=== PATIENT | female | born 1970 | race Caucasian/White ===

== ENCOUNTER 2020-04-20 10:13 | Emergency (ER) | payer SELFPAY ==
[~2020-04-20] VITALS: Ht 154.9 cm; Wt 55.2 kg
[2020-04-20] MEDS ORDERED: CEPH500T PO (10:23)
[2020-04-20] MEDS ORDERED: DICL75TA2 PO (10:23)
--- NOTE | 2020-04-20 10:24 | ED EENT ---
History of Present Illness General Chief Complaint: Dental Problems/Pain Stated Complaint: DENTAL PAIN Source: patient, RN/MD, old records History of Present Illness Date Seen by Provider: Apr 20, 2020 Time Seen by Provider: 10:15 Initial Comments This patient is a 49-year-old female presents to the emergency department complaining of dental pain. Patient states she believes she is developing a dental abscess. Patient states she has a bad tooth on the lower left side. Timing/Duration: gradual Location: mouth Prearrival Treatment: over the counter meds Associated Symptoms: tooth pain Allergies and Home Medications Patient Home Medication List Home Medication List Reviewed: Yes Review of Systems Review of Systems Constitutional: No no symptoms reported; see HPI; No chills, No diaphoresis, No dizziness, No fever, No malaise, No weakness, No weight gain, No weight loss, No other Eyes: Denies No Symptoms Reported, Denies See HPI, Denies Blindness, Denies Blurred Vision, Denies Drainage, Denies Decreased Acuity, Denies Foreign Body Sensation, Denies Inflammation, Denies Pain, Denies Photophobia, Denies Previous Injury, Denies Shadows, Denies Tunnel Vision, Denies Vision Changes, Denies Contact Lenses, Denies Glasses, Denies Other Ears: Denies No Symptoms Reported, Denies See HPI, Denies Dizziness, Denies Pain, Denies Tinnitus, Denies Bloody Discharge, Denies Clear Discharge, Denies Purulent Discharge, Denies Serosanguinous Discharge, Denies Previous Injury, Denies Other Nose: denies no symptoms reported, denies see HPI, denies clots, denies congestion, denies epistaxis, denies pain, denies bloody discharge, denies clear discharge, denies purulent discharge, denies serosanguinous discharge, denies previous injury, denies other Mouth: denies no symptoms reported; see HPI; denies clots, denies loose teeth; pain; denies swelling, denies bloody discharge, denies clear discharge, denies purulent discharge, denies serosanguinous discharge, denies previous injury, denies other Throat: denies no symptoms reported, denies see HPI, denies pain, denies swelling, denies discharge, denies neck stiffness, denies hoarse, denies aphonia, denies muffled, denies painful swallowing, denies difficulty with fluids, denies previous injury, denies other Respiratory: No no symptoms reported, No see HPI, No cough, No dyspnea on e xertion, No hemoptysis, No orthopnea, No phlegm, No short of breath, No stridor, No wheezing, No other Cardiovascular: No no symptoms reported, No see HPI, No chest pain, No edema, No Hx of Intervention, No palpitations, No syncope, No vascular heart diseas, No other All Other Systems Reviewed Negative Unless Noted: Yes Visual Acuity : Vision Acuity Degree: 20/10 Physical Exam Height, Weight, BMI Height: '" Weight: lbs. oz. kg; BMI Method: General Appearance: WD/WN, no apparent distress Mouth/Throat: dental tenderness (dental abscess left lower side) Neck: non-tender, full range of motion, supple, normal inspection Cardiovascular: regular rate, rhythm Respiratory: chest non-tender, lungs clear, normal breath sounds Gastrointestinal: normal bowel sounds, non tender, soft Skin: normal color, warm/dry Progress/Results/Core Measures Progress Progress Note : Time: 10:21 Progress Note Patient has known dental problems lower left side. Developing abscess. We'll place patient on Keflex twice a day for the next 7 days. Diclofenac as needed for pain. May use over [id number] Orajel or Anbesol as needed for tooth pain. Follow-up with dentist as soon as possible. Departure Impression Primary Impression: Dental caries Additional Impression: Dental abscess Disposition: 01 HOME, SELF-CARE Condition: Stable Departure-Patient Inst. Decision time for Depature: 10:22 Referrals: NO,LOCAL PHYSICIAN (PCP) Primary Care Physician Patient Instructions: Tooth Abscess (DC) Add. Discharge Instructions: We'll place patient on Keflex twice a day for the next 7 days. Diclofenac as needed for pain. May use over [id number] Orajel or Anbesol as needed for tooth pain. Follow-up with dentist as soon as possible. All discharge instructions reviewed with patient and/or family. Voiced understanding. Scripts Diclofenac Sodium (Diclofenac Sodium) 75 Mg Tablet.dr 75 MG PO BID for 10 Days, #20 TAB 0 Refills Prov: JAIDEN WHITE MD 04/20/20 Cephalexin (Cephalexin) 500 Mg Tablet 500 MG PO BID, #10 TAB 0 Refills Prov: JAIDEN WHITE MD 04/20/20 JAIDEN WHITE MD Apr 20, 2020 10:24
[2020-04-20 10:27] VITALS: BP 109/91
== END 2020-04-20 10:27 | disposition home or self-care (01) ==
LOC: ER FS 10:15
DX: K02.9 Dental caries, unspecified (principal); K04.7 Periapical abscess without sinus
CPT/HCPCS: 99282

== ENCOUNTER 2020-04-24 15:31 | Emergency (ER) | payer SELFPAY ==
[~2020-04-24 15:31] MED LIST: CEPH500T PO; DICL75TA2 PO
[2020-04-24 15:40] VITALS: BP 123/88
--- NOTE | 2020-04-24 15:53 | NUR ---
Spoke with [facility] and they said to call [phone] at 0730 in morning and see if they have any openings for tomorrow afternoon.
--- NOTE | 2020-04-24 16:06 | ED General ---
General Chief Complaint: Dental Problems/Pain Stated Complaint: FACE SWELLING,TOOTH ABSCESS Nursing Triage Note: Patient presents to the ED with c/o of tooth abscess on left lower side. She states she was seen in the ED 5 days ago and prescribed an antibiotic and pain medication. She reports that she has completed the antibiotic and the abscess/pain has not improved. Nursing Sepsis Screen: No Definite Risk Source of Information: Patient History of Present Illness Date Seen by Provider: Apr 24, 2020 Time Seen by Provider: 15:40 Initial Comments Patient is a 49-year-old female who presents for re-evaluation of mandible pain and facial abscess. Patient was evaluated emergency department 5 days ago for pain was prescribed antibiotics and pain medication which is. She said she has gradually increased more swelling tenderness over her left submandibular region. No dysphonia, drooling, trismus, dysphagia. Patient states she has been unable to get into a dentist. No other acute symptoms or complaints. Timing/Duration: 1 Week Severity: Moderate Modifying Factors: improves with Eating Associated Systoms: Denies Symptoms Allergies and Home Medications Allergies Coded Allergies: No Known Drug Allergies (Unverified , 04/20/20) Home Medications Cephalexin 500 Mg Tablet, 500 MG PO BID Prescribed by: JAIDEN WHITE on 04/20/20 1023 Diclofenac Sodium 75 Mg Tablet.dr, 75 MG PO BID Prescribed by: JAIDEN WHITE on 04/20/20 1023 Patient Home Medication List Home Medication List Reviewed: Yes Review of Systems Review of Systems Constitutional: no symptoms reported EENTM: see HPI Respiratory: no symptoms reported Past Pgjqats-Ncgylg-Qfvssc Hx Past Med/Social Hx: Reviewed Nursing Past Med/Soc Hx Patient Social History Alcohol Use: Denies Use Recreational Drug Use: No Type Used: Cigarettes 2nd Hand Smoke Exposure: No Recent Foreign Travel: No Contact w/Someone Who Travel: No Recent Infectious Disease Expo: No Recent Hopitalizations: No Physical Abuse: No Sexual Abuse: No Mistreated: No Fear: No Seasonal Allergies Seasonal Allergies: No Past Medical History Surgeries: Yes (L arm, Back, lumpectomy left breast) Breast, Orthopedic, Tubal Ligation Respiratory: No Cardiac: No Neurological: No Genitourinary: No Gastrointestinal: No Musculoskeletal: No Endocrine: No HEENT: No Cancer: Yes Breast Did You Recieve Any Treatments: Yes What Type of Treatment Did You: Chemotherapy, Surgical Intervention Psychosocial: No Integumentary: No Blood Disorders: No Physical Exam Vital Signs Vital Signs - First Documented 04/24/20 15:40 Temp 36.7 Pulse 78 Resp 18 B/P (MAP) 123/88 (100) Pulse Ox 97 O2 Delivery Room Air Capillary Refill : Less Than 3 Seconds Height, Weight, BMI Height: '" Weight: lbs. oz. kg; 23.00 BMI Method: General Appearance: No Apparent Distress Eyes: Bilateral Eye Normal Inspection, Bilateral Eye PERRL, Bilateral Eye Abnormal EOM HEENT: PERRL/EOMI, Normal ENT Inspection, Pharynx Normal, Other (left submandibular fullness, no fluctuance, erythema or warmth to suggest abscess, poor dentition, left lower premolar dental erosion with her gingival swelling) Neck: Full Range of Motion Respiratory: Chest Non Tender, Lungs Clear Cardiovascular: Regular Rate, Rhythm, No Edema Focused Exam Sepsis Stage: Ruled Out Progress/Results/Core Measures Suspected Sepsis Recent Fever Within 48 Hours: No Infection Criteria Present: Documented Infection New/Unexplained Altered Menta: No Sepsis Screen: No Definite Risk SIRS Temperature: Pulse: 78 Respiratory Rate: 18 Blood Pressure 123 /88 Mean: 100 Results/Orders Vital Signs/I&O 04/24/20 15:40 Temp 36.7 Pulse 78 Resp 18 B/P (MAP) 123/88 (100) Pulse Ox 97 O2 Delivery Room Air Capillary Refill : Less Than 3 Seconds Blood Pressure Mean: 100 Departure Communication (Admissions) Antibiotics and pain medications refilled. Dental clinic contacted and agrees to see patient tomorrow. Patient instructed to fill antibiotics and is visit dentist tomorrow without fail tomorrow. Pseudomonal Risk: No known risk Impression Primary Impression: Dental caries Additional Impression: Dental caries extending into dentine Disposition: HOME, SELF-CARE Condition: Stable/Unchanged Departure-Patient Inst. Referrals: NO,LOCAL PHYSICIAN (PCP/Family) Primary Care Physician Patient Instructions: Tooth Decay, Adult (DC) Add. Discharge Instructions: Please contact our clinic this afternoon scheduled appointment for tomorrow for evaluation of dental abscess tomorrow without fail. Fill antibiotics and pain medication after leaving the emergency department and take as directed. All discharge instructions reviewed with patient and/or family. Voiced understanding. Scripts Hydrocodone/Acetaminophen (Hydrocodone-Acetamin 5-325 mg) 1 Each Tablet 1 EACH PO q6, #10 TAB Prov: MARIANA SEGURA DO 04/24/20 Penicillin V Potassium (Penicillin V Potassium) 500 Mg Tablet 500 MG PO QID, #40 Prov: MARIANA SEGURA DO 04/24/20 MARIANA SEGURA DO Apr 24, 2020 16:06
[2020-04-24] MEDS ORDERED: PENI500T PO (16:07)
[2020-04-24] MEDS ORDERED: HYDR-83 PO (16:07)
--- OUTSIDE RECORDS SUMMARY | 2020-04-24 20:06 | XMS REPORT | Continuity of Care Document ---
Author Organization Unknown Address Unknown Phone Unavailable Allergies Active Description Code Type Severity Reaction Onset Reported/Identified Relationship to Patient Clinical Status Yes No Known Drug Allergies [id number] Drug Allergy Unknown N/A 04/20/2020 Medications There is no data. Problems Date Dx Coded Attending Type Code Diagnosis Diagnosed By 04/23/2020 JAIDEN WHITE MD Ot K02.9 DENTAL CARIES, UNSPECIFIED 04/23/2020 JAIDEN WHITE MD Ot K04.7 PERIAPICAL ABSCESS WITHOUT SINUS 04/23/2020 JAIDEN WHITE MD Ot K08.89 OTHER SPECIFIED DISORDERS OF TEETH AND S Procedures There is no data. Results There is no data. Encounters ACCT No. Visit Date/Time Discharge Status Pt. Type Provider Facility Loc./Unit Complaint [id number] 04/20/2020 10:15:00 020 10:27:00 DIS Outpatient JAIDEN WHITE MD [facility] ER FS DENTAL PAIN
== END 2020-04-24 16:28 | disposition home or self-care (01) ==
LOC: EDUNIT# 15:31 → ER FS 15:33
DX: K02.62 Dental caries on smooth surface penetrating into dentin (principal); Z85.3 Personal history of malignant neoplasm of breast
CPT/HCPCS: 99282

== ENCOUNTER 2021-08-21 15:41 | Emergency (ER) | payer SELFPAY ==
[~2021-08-21] VITALS: Ht 157.5 cm; Wt 54.5 kg
[~2021-08-21 15:41] MED LIST changes: +ACHD5005 PO; +PENI500T PO
--- NOTE | 2021-08-21 15:51 | ED GU-Female ---
General Chief Complaint: - Reproductive Stated Complaint: VAGINAL BLEEDING History of Present Illness Date Seen by Provider: Aug 21, 2021 Time Seen by Provider: 15:50 Initial Comments 51-year-old female presents with 2 days of light vaginal spotting/bleeding. Patient was concerned because she had a normal period about a week and a half ago and then had a little bit of very light spotting yesterday was just a little bit heavier today. Patient reports some on and off lower pelvic pain however this is been going on for months and is not new. Patient in the last 2 months had a normal pelvic exam and Pap smear. Patient denies any recent trauma. Patient does have a tubal ligation history. Allergies and Home Medications Allergies Coded Allergies: No Known Drug Allergies (Unverified , 04/20/20) Patient Home Medication List Home Medication List Reviewed: Yes Cephalexin (Cephalexin) 500 Mg Tablet, 500 MG PO BID Prescribed by: JAIDEN WHITE on 04/20/20 1023 Diclofenac Sodium (Diclofenac Sodium) 75 Mg Tablet.dr, 75 MG PO BID Prescribed by: JAIDEN WHITE on 04/20/20 1023 Hydrocodone/Acetaminophen (Hydrocodone-Acetamin 5-325 mg) 1 Each Tablet, 1 EACH PO q6 Prescribed by: MARIANA SEGURA on 04/24/20 1607 Penicillin V Potassium (Penicillin V Potassium) 500 Mg Tablet, 500 MG PO QID Prescribed by: MARIANA SEGURA on 04/24/20 1607 Review of Systems Review of Systems Constitutional: no symptoms reported EENTM: no symptoms reported Respiratory: no symptoms reported Cardiovascular: no symptoms reported Gastrointestinal: no symptoms reported Genitourinary: see HPI Musculoskeletal: no symptoms reported Skin: no symptoms reported Psychiatric/Neurological: No Symptoms Reported Past Cliolvc-Raxnng-Btcpqj Hx Seasonal Allergies Seasonal Allergies: No Past Medical History Surgeries: Yes (L arm, Back, lumpectomy left breast) Breast, Orthopedic, Tubal Ligation Respiratory: No Cardiac: No Neurological: No Genitourinary: No Gastrointestinal: No Musculoskeletal: No Endocrine: No HEENT: No Cancer: Yes Breast Did You Recieve Any Treatments: Yes What Type of Treatment Did You: Chemotherapy, Surgical Intervention Psychosocial: No Integumentary: No Blood Disorders: No Physical Exam Vital Signs Vital Signs - First Documented 08/21/21 15:55 Temp 37.3 Pulse 79 Resp 16 B/P (MAP) 138/91 (107) Pulse Ox 98 O2 Delivery Room Air Capillary Refill : Height, Weight, BMI Height: '" Weight: lbs. oz. kg; 23.00 BMI Method: General Appearance: WD/WN, no apparent distress Neck: non-tender, full range of motion Cardiovascular: normal peripheral pulses, regular rate, rhythm Respiratory: chest non-tender, lungs clear Gastrointestinal: non tender, soft Pelvic: other (Exam deferred, patient states recent normal pelvic exam, no tenderness in the lower abdomen/pelvic region on palpation) Neurologic/Psychiatric: alert, normal mood/affect, oriented x 3 Skin: normal color, warm/dry Progress/Results/Core Measures Suspected Sepsis SIRS Temperature: Pulse: Respiratory Rate: Blood Pressure / Mean: Results/Orders Vital Signs/I&O 08/21/21 15:55 Temp 37.3 Pulse 79 Resp 16 B/P (MAP) 138/91 (107) Pulse Ox 98 O2 Delivery Room Air Capillary Refill : Departure Impression Primary Impression: Dysfunctional uterine bleeding Disposition: HOME, SELF-CARE Condition: Stable Departure-Patient Inst. Referrals: NO,LOCAL PHYSICIAN (PCP/Family) Primary Care Physician Add. Discharge Instructions: Please follow-up with community health or [facility] for further evaluation. Return to the ER if bleeding requires pad changing within every 2 hours more than 3-4 times. All discharge instructions reviewed with patient and/or family. Voiced understanding. SUDHA ROLDAN DO Aug 21, 2021 15:50
[2021-08-21 15:55] VITALS: BP 138/91
== END 2021-08-21 16:20 | disposition home or self-care (01) ==
LOC: EDUNIT# 15:41 → ER FS 15:44
DX: N93.8 Other specified abnormal uterine and vaginal bleeding (principal); Z85.3 Personal history of malignant neoplasm of breast; Z98.51 Tubal ligation status
CPT/HCPCS: 99281

== ENCOUNTER 2022-01-14 14:41 | Emergency (ER) | payer SELFPAY ==
[2022-01-14] MEDS ORDERED: PRD20T PO (15:21)
[2022-01-14] MEDS ORDERED: DOXY100T2 PO (15:21)
[2022-01-14] MEDS ORDERED: GUAI120013 PO (15:21)
--- NOTE | 2022-01-14 15:21 | ED Cough/URI ---
General Chief Complaint: Cough/Cold/Flu Symptoms Stated Complaint: COUGH; FEVER Nursing Triage Note: PT REPORTS COUGH, NAUSEA, AND A H/A INTERMITTENTLY FOR 2 WEEKS. REPORTS POSITIVE FOR COVID IN OCTOBER. Source: patient Exam Limitations: no limitations History of Present Illness Date Seen by Provider: Jan 14, 2022 Time Seen by Provider: 14:45 Initial Comments Patient is a 51-year-old female presents with multiple complaints. She compla ins of cough, sore throat, nausea, and headache for 2 weeks. Headache is dull and migraine-like and intermittent similar to prior headaches patient tested positive for Covid 2 months ago. Reports increased anxiety and difficulty sleeping secondary to the same. Patient is currently without health insurance and has not followed up with primary care provider. She denies fever chills, shortness of breath palpitations and chest pain. No vomiting. No abdominal pain. No other acute symptoms or complaints. Timing/Duration: intermittent Severity/Quality: other Prior Episodes/Possible Cause: other Modifying Factors: Improves With Other Associated Symptoms: other Allergies and Home Medications Allergies Coded Allergies: No Known Drug Allergies (Unverified , 04/20/20) Patient Home Medication List Home Medication List Reviewed: Yes Cephalexin (Cephalexin) 500 Mg Tablet, 500 MG PO BID Prescribed by: JAIDEN WHITE on 04/20/20 1023 Diclofenac Sodium (Diclofenac Sodium) 75 Mg Tablet.dr, 75 MG PO BID Prescribed by: JAIDEN WHITE on 04/20/20 1023 Hydrocodone/Acetaminophen (Hydrocodone-Acetamin 5-325 mg) 1 Each Tablet, 1 EACH PO q6 Prescribed by: MARIANA SEGURA on 04/24/20 1607 Penicillin V Potassium (Penicillin V Potassium) 500 Mg Tablet, 500 MG PO QID Prescribed by: MARIANA SEGURA on 04/24/20 1607 Review of Systems Review of Systems Constitutional: see HPI EENTM: see HPI Respiratory: see HPI Cardiovascular: see HPI Gastrointestinal: see HPI Genitourinary: see HPI Musculoskeletal: see HPI Skin: see HPI Psychiatric/Neurological: See HPI Hematologic/Lymphatic: See HPI Immunological/Allergic: see HPI All Other Systems Reviewed Negative Unless Noted: Yes Past Yvwfmak-Wawcas-Wsvewf Hx Patient Social History Tobacco Use?: Yes Tobacco type used: Cigarettes Smoking Status: Current Everyday Smoker Substance use?: No Alcohol Use?: Yes Alcohol Frequency: Once in a while Pt feels they are or have been: No Immunizations Up To Date Influenza Vaccine Up-to-Date: Yes; Up-to-Date First/Initial COVID19 Vaccinat: UNKNOWN Second COVID19 Vaccination Cricket: UNKNOWN Third COVID19 Vaccination Date: NOT RECEIVED COVID19 Vaccine Tactical Debriefer: MARIA ESTHER Seasonal Allergies Seasonal Allergies: No Past Medical History Surgeries: Yes (L arm, Back, lumpectomy left breast) Breast, Orthopedic, Tubal Ligation Respiratory: No Cardiac: No Neurological: No Genitourinary: No Gastrointestinal: No Musculoskeletal: No Endocrine: No HEENT: No Cancer: Yes Breast Did You Recieve Any Treatments: Yes What Type of Treatment Did You: Chemotherapy, Surgical Intervention Psychosocial: No Integumentary: No Blood Disorders: No Physical Exam Vital Signs - First Documented 01/14/22 14:56 Temp 36.5 Pulse 80 Resp 18 B/P (MAP) 132/91 (105) Pulse Ox 99 O2 Delivery Room Air Capillary Refill : Height: '" Weight: lbs. oz. kg; 21.00 BMI Method: General Appearance: WD/WN, no apparent distress Eyes: Bilateral Eye Normal Inspection, Bilateral Eye PERRL, Bilateral Eye EOMI HEENT: PERRL/EOMI, TMs normal, pharynx normal Neck: non-tender, full range of motion, supple Respiratory: lungs clear Cardiovascular: normal peripheral pulses, regular rate, rhythm Extremities: non-tender Neurologic/Psychiatric: alert, oriented x 3 Focused Exam Sepsis Stage: Ruled Out Progress/Results/Core Measures Suspected Sepsis SIRS Temperature: Pulse: 80 Respiratory Rate: 18 Blood Pressure 132 /91 Mean: 105 Results/Orders Vital Signs/I&O 01/14/22 14:56 Temp 36.5 Pulse 80 Resp 18 B/P (MAP) 132/91 (105) Pulse Ox 99 O2 Delivery Room Air Capillary Refill : Blood Pressure Mean: 105 Departure Communication (Admissions) Patient with post viral productive bronchitis with somatic complaints and migraine-like headaches. No respiratory compromise. Will treat supportively with PCP follow-up. Impression Primary Impression: Bronchial pneumonia Disposition: HOME, SELF-CARE Condition: Stable Departure-Patient Inst. Decision time for Depature: 15:19 Referrals: NO,LOCAL PHYSICIAN (PCP/Family) Primary Care Physician Patient Instructions: Acute Bronchitis, Adult (DC) Add. Discharge Instructions: Please take newly prescribed medications as directed and establish with a local primary care provider. Take Excedrin Migraine and Benadryl as needed for headache take the day off work and stay home and rest. All discharge instructions reviewed with patient and/or family. Voiced understanding. Scripts Guaifenesin (Mucinex) 1,200 Mg Tab.er.12h 1200 MG PO BID, #20 TAB Prov: MARIANA SEGURA DO 01/14/22 Doxycycline Hyclate (Doxycycline Hyclate) 100 Mg Tablet 100 MG PO BID, #20 TAB 0 Refills Prov: MARIANA SEGURA DO 01/14/22 Prednisone (Prednisone) 20 Mg Tab 40 MG PO DAILY, #6 TAB 0 Refills Prov: MARIANA SEGURA DO 01/14/22 MARIANA SEGURA DO Jan 14, 2022 15:21
[2022-01-14 15:23] VITALS: BP 132/91
== END 2022-01-14 15:25 | disposition home or self-care (01) ==
LOC: EDUNIT# 14:41 → ER FS 14:42
DX: J18.0 Bronchopneumonia, unspecified organism (principal); F17.210 Nicotine dependence, cigarettes, uncomplicated
CPT/HCPCS: 99282

== ENCOUNTER 2022-08-29 14:42 | Emergency (ER) | payer SELFPAY ==
[~2022-08-29] VITALS: Ht 157.4 cm; Wt 57.6 kg
[~2022-08-29 14:42] MED LIST changes: +DOXY100T2 PO; +GUAI120013 PO; +PRD20T PO
--- NOTE | 2022-08-29 15:29 | ED Back Pain ---
General Chief Complaint: Back Problems Stated Complaint: BACK PAIN History of Present Illness Date Seen by Provider: Aug 29, 2022 Time Seen by Provider: 15:27 Initial Comments 52-year-old female with back pain started yesterday. Patient has a history of back pain with surgery about 12 years ago. Patient has been doing well up until then. Patient states she lifted a box of [place] yesterday. Then later on she was laying on the ground and went to get up and the pain was there. The pain does not radiate anywhere its in the left lower back no radiation down the legs. No radiation of the spine. Method of Injury: Unknown Allergies and Home Medications Allergies Coded Allergies: No Known Drug Allergies (Unverified , 04/20/20) Patient Home Medication List Home Medication List Reviewed: Yes Cephalexin (Cephalexin) 500 Mg Tablet, 500 MG PO BID Prescribed by: JAIDEN WHITE on 04/20/20 1023 Cyclobenzaprine HCl (Cyclobenzaprine HCl) 5 Mg Tablet, 5 MG PO HS Prescribed by: Nii Gasca on 08/29/22 1618 Diclofenac Sodium (Diclofenac Sodium) 75 Mg Tablet.dr, 75 MG PO BID Prescribed by: JAIDEN WHITE on 04/20/20 1023 Doxycycline Hyclate (Doxycycline Hyclate) 100 Mg Tablet, 100 MG PO BID Prescribed by: MARIANA SEGURA on 01/14/22 1521 Guaifenesin (Mucinex) 1,200 Mg Tab.er.12h, 1,200 MG PO BID Prescribed by: MARIANA SEGURA on 01/14/22 1521 Hydrocodone/Acetaminophen (Hydrocodone-Acetamin 5-325 mg) 1 Each Tablet, 1 EACH PO q6 Prescribed by: MARIANA SEGURA on 04/24/20 1607 Meloxicam (Meloxicam) 7.5 Mg Tablet, 7.5 MG PO DAILY Prescribed by: Nii Gasca on 08/29/22 1618 Penicillin V Potassium (Penicillin V Potassium) 500 Mg Tablet, 500 MG PO QID Prescribed by: MARIANA SEGURA on 04/24/20 1607 Prednisone (Prednisone) 20 Mg Tab, 40 MG PO DAILY Prescribed by: MARIANA SEGURA on 01/14/22 1521 Review of Systems Constitutional: see HPI Past Etgvdrp-Ctkdep-Yqvppl Hx Patient Social History Tobacco Use?: Yes Immunizations Up To Date First/Initial COVID19 Vaccinat: UNKNOWN Second COVID19 Vaccination Cricket: UNKNOWN Third COVID19 Vaccination Date: NOT RECEIVED Seasonal Allergies Seasonal Allergies: No Past Medical History Surgeries: Yes (L arm, Back, lumpectomy left breast) Breast, Orthopedic, Tubal Ligation Respiratory: No Cardiac: No Neurological: No Genitourinary: No Gastrointestinal: No Musculoskeletal: No Endocrine: No HEENT: No Cancer: Yes Breast Did You Recieve Any Treatments: Yes What Type of Treatment Did You: Chemotherapy, Surgical Intervention Psychosocial: No Integumentary: No Blood Disorders: No Physical Exam Vital Signs Vital Signs - First Documented 08/29/22 14:57 Temp 36.5 Pulse 98 Resp 16 B/P (MAP) 130/94 (106) Pulse Ox 99 O2 Delivery Room Air Capillary Refill : Height, Weight, BMI Height: '" Weight: lbs. oz. kg; 21.00 BMI Method: General Appearance: WD/WN, Mild Distress Neck: Non Tender, Supple Back: Decreased Range of Motion, Muscle Spasm, Vertebral Tenderness Neurologic/Psychiatric: Alert, Oriented x3 Skin: Normal Color, Warm/Dry Progress/Results/Core Measures Results/Orders My Orders Orders - NII GASCA MD Lumbar Spine 2 Or 3 View (08/29/22 15:29) Ketorolac Injection (Toradol Injection) (08/29/22 16:15) Medications Given in ED Current Medications Medications Dose Ordered Sig/Vashti Route Start Time Stop Time Status Last Admin Dose Admin Ketorolac Tromethamine 60 mg ONCE ONCE IM 08/29/22 16:15 08/29/22 16:18 DC 08/29/22 16:27 60 MG Vital Signs/I&O 08/29/22 14:57 Temp 36.5 Pulse 98 Resp 16 B/P (MAP) 130/94 (106) Pulse Ox 99 O2 Delivery Room Air Departure Impression Primary Impression: Lumbar sprain Qualified Codes: S33.5XXA - Sprain of ligaments of lumbar spine, initial encounter Disposition: 01 HOME, SELF-CARE Condition: Stable Departure-Patient Inst. Decision time for Depature: 16:17 Referrals: NO,LOCAL PHYSICIAN (PCP/Family) Primary Care Physician Patient Instructions: Back Muscle Strain (DC) Add. Discharge Instructions: We will give patient some meloxicam and Flexeril to take at home. Follow-up with primary care. All discharge instructions reviewed with patient and/or family. Voiced unders tanding. Scripts Cyclobenzaprine HCl (Cyclobenzaprine HCl) 5 Mg Tablet 5 MG PO HS for 10 Days, #10 TAB Prov: NII GASCA MD 08/29/22 Meloxicam (Meloxicam) 7.5 Mg Tablet 7.5 MG PO DAILY for 10 Days, #10 TAB Prov: NII GASCA MD 08/29/22 Work/School Note: Family Work Note Patient Received Medical Care In the Emergency Department On: Aug 29, 2022 Patient Will Be Able to Return to Work/School On: Sep 02, 2022 NII GASCA MD Aug 29, 2022 15:29
--- NOTE | 2022-08-29 15:51 | Diagnostic Imaging Report ---
EXAMINATION: Lumbosacral spine 2 or 3 views. HISTORY: Back pain. COMPARISON: None available. FINDINGS: There is no acute fracture or dislocation of the lumbar spine. Alignment is anatomic. The vertebral body heights are well maintained. Degenerative changes are seen in the lumbar spine with disc height loss, marginal osteophytes and facet hypertrophy. These are greatest at the L4-L5 and L5-S1 levels. The paraspinal soft tissues are unremarkable. IMPRESSION: 1. No acute fracture or dislocation in the lumbar spine. 2. Degenerative changes in the lumbar spine, greatest at L4-L5 and L5-S1. Dictated by: Dictated on workstation # [id number]
[2022-08-29] MEDS ORDERED: KETOROLAC 60 MG/2 ML VIAL IM ONE (16:15)
[2022-08-29] MEDS ORDERED: CYCL5TAB PO (16:18)
[2022-08-29] MEDS ORDERED: MELO7.5T46 PO (16:18)
[2022-08-29 16:54] VITALS: BP 128/87
== END 2022-08-29 16:54 | disposition home or self-care (01) ==
LOC: EDUNIT# 14:42 → ER FS 14:44
DX: S33.5XXA Sprain of ligaments of lumbar spine, initial encounter (principal); Z98.890 Other specified postprocedural states; Z72.0 Tobacco use; X50.0XXA Overexertion from strenuous movement or load, initial encounter
CPT/HCPCS: 72100

== ENCOUNTER 2023-05-07 18:49 | Emergency (ER) | payer SELFPAY ==
[~2023-05-07] VITALS: Ht 157 cm; Wt 58.3 kg
[~2023-05-07 18:49] MED LIST changes: +CYCL5TAB PO; +MELO7.5T46 PO
[2023-05-07 18:54] VITALS: BP 138/88
[2023-05-07] MEDS ORDERED: CYCLOBENZAPRINE 10 MG (FLEXERIL) TAB PO STA (19:01)
[2023-05-07] MEDS ORDERED: LIDO700A45 TP (19:07)
[2023-05-07] MEDS ORDERED: CYCL10TA25 PO (19:07)
--- NOTE | 2023-05-07 19:08 | ED General ---
General Chief Complaint: Back Problems Stated Complaint: BACK PAIN Source of Information: Patient Exam Limitations: No Limitations History of Present Illness Date Seen by Provider: May 07, 2023 Time Seen by Provider: 18:53 Initial Comments 53-year-old female with no pertinent past medical history coming in due to right-sided chest wall pain. She states she was reaching for something, felt a pop in the right side of her chest wall laterally, and had pain. This occurred around 2 PM. Pain is constant, worse with movement or touching it, better with rest. She did take few aspirin which helped somewhat. Otherwise denying any other acute complaints including no significant chest pain in the front, no shortness of breath, fever, rash, weakness, numbness, or any other concerns. Allergies and Home Medications Allergies Coded Allergies: No Known Drug Allergies (Unverified , 04/20/20) Patient Home Medication List Home Medication List Reviewed: Yes Cephalexin (Cephalexin) 500 Mg Tablet, 500 MG PO BID Prescribed by: JAIDEN WHITE on 04/20/20 1023 Cyclobenzaprine HCl (Cyclobenzaprine HCl) 5 Mg Tablet, 5 MG PO HS Prescribed by: Nii Gasca on 08/29/22 1618 Cyclobenzaprine HCl (Cyclobenzaprine HCl) 10 Mg Tablet, 10 MG PO Q8H PRN for SPASMS Prescribed by: JOSIAH BOATENG on 05/07/231906 Diclofenac Sodium (Diclofenac Sodium) 75 Mg Tablet.dr, 75 MG PO BID Prescribed by: JAIDEN WHITE on 04/20/20 1023 Doxycycline Hyclate (Doxycycline Hyclate) 100 Mg Tablet, 100 MG PO BID Prescribed by: MARIANA SEGURA on 01/14/22 1521 Guaifenesin (Mucinex) 1,200 Mg Tab.er.12h, 1,200 MG PO BID Prescribed by: MARIANA SEGURA on 01/14/22 1521 Hydrocodone/Acetaminophen (Hydrocodone-Acetamin 5-325 mg) 1 Each Tablet, 1 EACH PO q6 Prescribed by: MARIANA SEGURA on 04/24/20 1607 Lidocaine (Lidocaine 5% Patch) 5 % Adh..patch, 1 EACH TP Q12H PRN for Neuropathic pain Prescribed by: JOSIAH BOATENG on 05/07/23 190 Meloxicam (Meloxicam) 7.5 Mg Tablet, 7.5 MG PO DAILY Prescribed by: Nii Gasca on 08/29/22 1618 Penicillin V Potassium (Penicillin V Potassium) 500 Mg Tablet, 500 MG PO QID Prescribed by: MARIANA SEGURA on 04/24/20 1607 Prednisone (Prednisone) 20 Mg Tab, 40 MG PO DAILY Prescribed by: MARIANA SEGURA on 01/14/22 1521 Review of Systems Review of Systems Constitutional: No fever EENTM: no symptoms reported Respiratory: no symptoms reported Cardiovascular: no symptoms reported Musculoskeletal: see HPI Skin: no symptoms reported Psychiatric/Neurological: No Symptoms Reported Past Xnvtfqv-Uyefuo-Lfxbdz Hx Patient Social History Tobacco Use?: No Immunizations Up To Date First/Initial COVID19 Vaccinat: UNKNOWN Second COVID19 Vaccination Cricket: UNKNOWN Third COVID19 Vaccination Date: NOT RECEIVED Seasonal Allergies Seasonal Allergies: No Past Medical History Surgery/Hospitalization HX: Chronic back pain; Back surgery; Sciatica; Tubal ligation; left arm ortho Surgeries: Yes (L arm, Back, lumpectomy left breast) Breast, Orthopedic, Tubal Ligation Respiratory: No Cardiac: No Neurological: No Genitourinary: No Gastrointestinal: No Musculoskeletal: No Endocrine: No HEENT: No Cancer: Yes Breast Did You Recieve Any Treatments: Yes What Type of Treatment Did You: Chemotherapy, Surgical Intervention Psychosocial: No Integumentary: No Blood Disorders: No Physical Exam Vital Signs Vital Signs - First Documented 05/07/23 18:54 Temp 36.6 Pulse 87 Resp 16 B/P (MAP) 138/88 (105) Pulse Ox 98 O2 Delivery Room Air Capillary Refill : Height, Weight, BMI Height: '" Weight: lbs. oz. kg; 23.00 BMI Method: General Appearance: No Apparent Distress, WD/WN Eyes: Bilateral Eye Normal Inspection HEENT: PERRL/EOMI, Normal ENT Inspection, Pharynx Normal Neck: Full Range of Motion, Normal Inspection, Non Tender, Supple Respiratory: Lungs Clear, Normal Breath Sounds, No Accessory Muscle Use, No Respiratory Distress, Other (Right lateral chest wall tenderness to palpation) Cardiovascular: Regular Rate, Rhythm, No Edema, Normal Peripheral Pulses Gastrointestinal: Normal Bowel Sounds, Non Tender, Soft; No Distended, No Guarding Back: Normal Inspection, No CVA Tenderness, No Vertebral Tenderness Extremity: Normal Capillary Refill, Normal Inspection, Normal Range of Motion, Non Tender, No Calf Tenderness, No Pedal Edema Neurologic/Psychiatric: Alert, No Motor/Sensory Deficits, Normal Mood/Affect Skin: Normal Color, Warm/Dry Progress/Results/Core Measures Suspected Sepsis SIRS Temperature: Pulse: Respiratory Rate: Blood Pressure / Mean: Results/Orders My Orders Orders - OJSIAH BOATENG MD Chest Pa/Lat (2 View) (05/07/23 19:01) Ibuprofen Tablet (Motrin Tablet) (05/07/23 19:15) Acetaminophen Tablet (Tylenol Tablet) (05/07/23 19:15) Cyclobenzaprine Tablet (Flexeril Tablet) (05/07/23 19:01) Medications Given in ED Current Medications Medications Dose Ordered Sig/Vashti Route Start Time Stop Time Status Last Admin Dose Admin Acetaminophen 1,000 mg ONCE ONCE PO 05/07/23 19:15 05/07/23 19:16 DC 05/07/23 19:11 1,000 MG Ibuprofen 600 mg ONCE ONCE PO 05/07/23 19:15 05/07/23 19:16 DC 05/07/23 19:11 600 MG Vital Signs/I&O 05/07/23 18:54 Temp 36.6 Pulse 87 Resp 16 B/P (MAP) 138/88 (105) Pulse Ox 98 O2 Delivery Room Air Capillary Refill : Progress Note : Progress Note 53-year-old female with above history coming in due to right lateral chest wall pain after reaching for something and feeling a pop. ABCs were intact and vitals are stable on presentation. She has bilateral lung sounds, less likely to be a pneumothorax, especially given she is well-appearing. We will get a chest x-ray to screen for pneumothorax versus much less likely any type of rib fracture. Pain does sound musculoskeletal in nature. Given ibuprofen, Tylenol, and Flexeril here for pain. X-ray of the chest ordered and interpreted by me showing no pneumothorax, no obvious rib fracture, normal cardiac silhouette. I believe the patient is stable for discharge with outpatient follow-up. She was sent home with strict return precautions. Prescriptions sent for symptom management. Diagnostic Imaging Diagonstic Imaging: Xray (chest) Comments NAME: [facility] REC#: [id number] PT STATUS: REG ER : 1970 PHYSICIAN: JOSIAH BOATENG MD ADMIT DATE: 05/07/23/ER FS Draft Date of Exam:05/07/23 CHEST PA/LAT (2 VIEW) INDICATION: Chest wall pain. EXAMINATION: PA and lateral views were obtained. FINDINGS: The heart size, mediastinal configuration and pulmonary vascularity are within normal limits. There is no pleural effusion, pneumothorax or pneumonia. The osseous structures are unremarkable. IMPRESSION: No acute cardiopulmonary abnormality. Dictated on workstation # [id number] Dict: 05/07/231917 Trans: 05/07/231918 [id number] Interpreted by: SHIV LORENZ MD Electronically signed by: Departure Impression Primary Impression: Chest wall muscle strain Qualified Codes: S29.011A - Strain of muscle and tendon of front wall of thorax, initial encounter Disposition: HOME, SELF-CARE Condition: Stable Departure-Patient Inst. Decision time for Depature: 19:25 Referrals: NO,LOCAL PHYSICIAN (PCP/Family) Primary Care Physician Patient Instructions: Muscle Strain ED Add. Discharge Instructions: This likely could be a small tear in the muscle in your chest wall on the right side and that is what the pop you are feeling could have been. This will heal on its own. Lidocaine patches were sent to your pharmacy which you can place where you are having the most pain. A muscle relaxer was also sent. Otherwise take ibuprofen 600 mg every 6 hours as needed for pain, and you can mix Tylenol 1000 mg every 6 hours as well. Both of those medicines are over the counter. Follow-up with your regular doctor if you are not seeing improvement in the next week. Scripts Lidocaine (Lidocaine 5% Patch) 5 % Adh..patch 1 EACH TP Q12H PRN for Neuropathic pain MDD 2 for 7 Days, #14 PATCH 2 patches max for 12 hours, then 12 hours patch-free period. Prov: JOSIAH BOATENG MD 05/07/23 Cyclobenzaprine HCl (Cyclobenzaprine HCl) 10 Mg Tablet 10 MG PO Q8H PRN for SPASMS for 5 Days, #15 TAB 0 Refills Prov: JOSIAH BOATENG MD 05/07/23 Work/School Note: Family Work Note, Patient Received Medical Care In the Emergency Department On: May 07, 2023 Patient Will Be Able to Return to Work/School On: May 08, 2023 Work Release Form Date Seen in the Emergency Department: May 07, 2023 Return to Work: May 09, 2023 Restrictions: No Restrictions JOSIAH BOATENG MD May 07, 2023 19:08
[2023-05-07] MEDS ORDERED: IBUPROFEN 600 MG (MOTRIN) TAB PO ONE (19:15)
[2023-05-07] MEDS ORDERED: ACETAMINOPHEN 500 MG TAB (TYLENOL) PO ONE (19:15)
--- NOTE | 2023-05-07 19:19 | Diagnostic Imaging Report ---
INDICATION: Chest wall pain. EXAMINATION: PA and lateral views were obtained. FINDINGS: The heart size, mediastinal configuration and pulmonary vascularity are within normal limits. There is no pleural effusion, pneumothorax or pneumonia. The osseous structures are unremarkable. IMPRESSION: No acute cardiopulmonary abnormality. Dictated by: Dictated on workstation # [id number]
== END 2023-05-07 19:28 | disposition home or self-care (01) ==
LOC: EDUNIT# 18:49 → ER FS 18:50
DX: S29.011A Strain of muscle and tendon of front wall of thorax, initial encounter (principal); X50.1XXA Overexertion from prolonged static or awkward postures, initial encounter
CPT/HCPCS: 71046

== ENCOUNTER 2023-09-18 11:31 | Emergency (ER) | payer OTHER ==
[~2023-09-18] VITALS: Ht 160 cm; Wt 60.0 kg
[~2023-09-18 11:31] MED LIST changes: +CYCL10TA25 PO; +LIDO700A45 TP
[2023-09-18 11:36] VITALS: BP 158/106
--- NOTE | 2023-09-18 12:14 | ED EENT ---
History of Present Illness General Chief Complaint: Dental Problems/Pain Stated Complaint: DENTAL PAIN/SWELLING Nursing Triage Note: Lower left dental pain - for the last 4 days - not seen anyone for the pain and came to ER for evaluation. Source: patient History of Present Illness Date Seen by Provider: Sep 18, 2023 Time Seen by Provider: 12:13 Initial Comments 53-year-old female presenting with complaints of increasing pain and swelling to her left jaw and posterior tooth. She has had problems off and on for at least 6 months however in the last 3 to 4 days pain has been more severe and she has been taking up to 2000 mg of Tylenol at a time as well as 1600 mg of ibuprofen at a time. She has had some nausea and vomiting with the amount of medicine she is taking. She also was having dental pain despite trying these medicines and Orajel. She felt like she was getting swelling to her left jaw and ear pain as well. She denied having any fever or chills. She has previously been seen with the [facility] dental clinic out of [place] but states that she needs to renew her paperwork to be able to get seen again. Timing/Duration: abrupt (Worse in the last 2 or 3 days) Severity: severe Location: dental Prearrival Treatment: over the counter meds Modifying Factors: Worse With Other (Eating and drinking) Associated Symptoms: No change in hearing, No cough, No drooling, No ear drainage; facial pain/swelling; No fever, No malaise, No nasal congestion/drainage, No poor fluid intake, No poor solids intake, No sinus infection, No sore throat; tooth pain; No voice change Allergies and Home Medications Allergies Coded Allergies: No Known Drug Allergies (Unverified , 04/20/20) Patient Home Medication List Home Medication List Reviewed: Yes Amoxicillin/Potassium Clav (Amox Tr-K Clv 875-125 mg Tab) 875 Mg-125 Mg Tablet, 1 EACH PO BID Prescribed by: NATALI SHAVER on 09/18/23 1224 Cephalexin (Cephalexin) 500 Mg Tablet, 500 MG PO BID Prescribed by: JAIDEN WHITE on 04/20/20 1023 Cyclobenzaprine HCl (Cyclobenzaprine HCl) 5 Mg Tablet, 5 MG PO HS Prescribed by: Nii Gasca,Medical Student on 08/29/22 1618 Cyclobenzaprine HCl (Cyclobenzaprine HCl) 10 Mg Tablet, 10 MG PO Q8H PRN for SPASMS Prescribed by: JOSIAH BOATENG on 05/07/23 190 Diclofenac Sodium (Diclofenac Sodium) 75 Mg Tablet.dr, 75 MG PO BID Prescribed by: JAIDEN WHITE on 04/20/20 1023 Doxycycline Hyclate (Doxycycline Hyclate) 100 Mg Tablet, 100 MG PO BID Prescribed by: MARIANA SEGURA on 01/14/22 152 Guaifenesin (Mucinex) 1,200 Mg Tab.er.12h, 1,200 MG PO BID Prescribed by: MARIANA SEGURA on 01/14/22 1521 Hydrocodone/Acetaminophen (Hydrocodone-Acetamin 5-325 mg) 1 Each Tablet, 1 EACH PO q6 Prescribed by: MARIANA SEGURA on 04/24/20 1607 Hydrocodone/Acetaminophen (Hydrocodone-Acetamin 7.5-325) 7.5 Mg-325 Mg Tablet, 1 EACH PO Q4H PRN for PAIN SEVERE Prescribed by: NATALI SHAVER on 09/18/23 1225 Ibuprofen (Ibuprofen) 800 Mg Tablet, 800 MG PO Q8H PRN for PAIN Prescribed by: NATALI SHAVER on 09/18/23 1224 Lidocaine (Lidocaine 5% Patch) 5 % Adh..patch, 1 EACH TP Q12H PRN for Neuropathic pain Prescribed by: JOSIAH BOATENG on 05/07/231906 Meloxicam (Meloxicam) 7.5 Mg Tablet, 7.5 MG PO DAILY Prescribed by: Nii Gasca,Medical Student on 08/29/22 1618 Ondansetron (Ondansetron Odt) 4 Mg Tab.rapdis, 4 MG PO Q6H PRN for NAUSEA/VOMITING Prescribed by: NATALI SHAVER on 09/18/23 1224 Penicillin V Potassium (Penicillin V Potassium) 500 Mg Tablet, 500 MG PO QID Prescribed by: MARIANA SEGURA on 04/24/20 1607 Prednisone (Prednisone) 20 Mg Tab, 40 MG PO DAILY Prescribed by: MARIANA SEGURA on 01/14/22 1521 Review of Systems Review of Systems Constitutional: No chills, No fever Eyes: No Symptoms Reported Ears: See HPI Nose: no symptoms reported Mouth: see HPI Throat: no symptoms reported Respiratory: no symptoms reported Cardiovascular: no symptoms reported Gastrointestinal: see HPI Musculoskeletal: no symptoms reported Skin: no symptoms reported Neurological: No Symptoms Reported Past Egveguy-Jvwehl-Thmqem Hx Patient Social History Tobacco Use?: Yes Tobacco type used: Cigarettes Substance use?: No Immunizations Up To Date First/Initial COVID19 Vaccinat: unk Second COVID19 Vaccination Cricket: UNKNOWN Third COVID19 Vaccination Date: NOT RECEIVED Seasonal Allergies Seasonal Allergies: No Past Medical History Surgery/Hospitalization HX: Chronic back pain; Back surgery; Sciatica; Tubal ligation; left arm ortho Surgeries: Yes (L arm, Back, lumpectomy left breast) Breast, Orthopedic, Tubal Ligation Respiratory: No Cardiac: No Neurological: No Genitourinary: No Gastrointestinal: No Musculoskeletal: No Endocrine: No HEENT: No Cancer: Yes Breast Did You Recieve Any Treatments: Yes What Type of Treatment Did You: Chemotherapy, Surgical Intervention Psychosocial: No Integumentary: No Blood Disorders: No Physical Exam Vital Signs Vital Signs - First Documented 09/18/23 11:36 Temp 35.6 Pulse 90 Resp 16 B/P (MAP) 158/106 (123) Pulse Ox 98 O2 Delivery Room Air Height, Weight, BMI Height: '" Weight: lbs. oz. kg; 23.00 BMI Method: General Appearance: WD/WN, mild distress Eyes: bilateral eye PERRL, bilateral eye EOMI Ears: bilateral ear canal normal, bilateral ear TM normal Mouth/Throat: dental tenderness, other (Multiple missing teeth and widespread dental decay. On the left lower posterior tooth she has a exposed pulp and nerves) Neck: full range of motion, supple, lymphadenopathy (L) Neurologic/Psychiatric: alert, oriented x 3 Skin: normal color, warm/dry Progress/Results/Core Measures Results/Orders My Orders Orders - NATALI SHAVER MD Ketorolac Injection (Ketorolac Injection (09/18/23 12:20) Ondansetron Oral Dissolve Tab (Ondanset (09/18/23 12:20) Ceftriaxone Iv/Im (Ceftriaxone Iv/Im) (09/18/23 12:20) Lidocaine 1% Inj 20 Ml (Xylocaine 1% Inj (09/18/23 12:30) Medications Given in ED Current Medications Medications Dose Ordered Sig/Vashti Route Start Time Stop Time Status Last Admin Dose Admin Lidocaine HCl 2.1 ml ONCE ONCE INJ 09/18/23 12:30 09/18/23 12:31 DC 09/18/23 12:27 2.1 ML Vital Signs/I&O 09/18/23 11:36 Temp 35.6 Pulse 90 Resp 16 B/P (MAP) 158/106 (123) Pulse Ox 98 O2 Delivery Room Air Blood Pressure Mean: 123 Progress Progress Note : Progress Note Administer Rocephin 1 g IM today initiate antibiotic treatment for dental pain and infection. Also ordered Toradol 30 mg IM to help with pain and inflammation. Patient is driving so unable to provide stronger pain medicine here. We will send a prescription for 7.5/325 hydrocodone 1 every 4 hours as needed severe pain. Also prescribed ibuprofen 800 mg p.o. every 8 hours as needed pain and inflammation. Zofran 4 mg ODT every 6 hours as needed nausea and vomiting. Given a dose of that here in the ED as well. Prescribed Augmentin 875 1 p.o. twice daily x10 days to help treat for dental infection. Stressed importance of following up with dentist and [facility] as soon as possible. Departure Impression Primary Impression: Pain due to dental caries Additional Impression: Mandibular swelling Disposition: HOME, SELF-CARE Condition: Stable Departure-Patient Inst. Decision time for Depature: 12:22 Referrals: NO,LOCAL PHYSICIAN (PCP) Primary Care Physician [facility] Patient Instructions: Tooth Decay ED, Dental Pain ED Add. Discharge Instructions: Taking some much of the acetaminophen or Tylenol. Try using the hydrocodone with Tylenol to control your pain. Take the ibuprofen 800 mg every 8 hours as needed for extra pain control and inflammation control. Take the antibiotic twice a day to help treat for infection. Call [facility] to follow-up with the dental clinic as soon as possible. The number for the [facility] clinic here in [place] is [phone]. All discharge instructions reviewed with patient and/or family. Voiced understanding. Scripts Ondansetron (Ondansetron Odt) 4 Mg Tab.rapdis 4 MG PO Q6H PRN for NAUSEA/VOMITING for 5 Days, #20 TAB 0 Refills Prov: NATALI SHAVER MD 09/18/23 Ibuprofen (Ibuprofen) 800 Mg Tablet 800 MG PO Q8H PRN for PAIN for 10 Days, #30 TAB 0 Refills Prov: NATALI SHAVER MD 09/18/23 Amoxicillin/Potassium Clav (Amox Tr-K Clv 875-125 mg Tab) 875 Mg-125 Mg Tablet 1 EACH PO BID for dental infection for 10 Days, #20 TAB 0 Refills Prov: NATALI SHAVER MD 09/18/23 Hydrocodone/Acetaminophen (Hydrocodone-Acetamin 7.5-325) 7.5 Mg-325 Mg Tablet 1 EACH PO Q4H PRN for PAIN SEVERE for 5 Days, #30 TAB 0 Refills Prov: NATALI SHAVER MD 09/18/23 NATALI SHAVER MD Sep 18, 2023 12:14
[2023-09-18] MEDS ORDERED: cefTRIAXone 1,000 MG VIAL IV/IM IM STA (12:20)
[2023-09-18] MEDS ORDERED: KETOROLAC INJ 30 MG/ML VIAL IM STA (12:20)
[2023-09-18] MEDS ORDERED: ONDANSETRON 4 MG ORAL DISSOLVE TABLET PO STA (12:20)
[2023-09-18] MEDS ORDERED: AMOX1TAB12 PO (12:24)
[2023-09-18] MEDS ORDERED: ONDA4TAB11 PO (12:24)
[2023-09-18] MEDS ORDERED: IBUP-1780 PO (12:24)
[2023-09-18] MEDS ORDERED: HYDR-3817 PO (12:24)
[2023-09-18] MEDS ORDERED: LIDOCAINE 1% INJ 20 ML VIAL INJ ONE (12:30)
== END 2023-09-18 12:33 | disposition home or self-care (01) ==
LOC: EDUNIT# 11:31 → ER FS 11:32
DX: K02.9 Dental caries, unspecified (principal); F17.210 Nicotine dependence, cigarettes, uncomplicated
CPT/HCPCS: 96372; 99284